=== PATIENT | female | born 1955 | race Caucasian/White ===

== ENCOUNTER 2018-07-09 08:33 | Day surgery (SDC) | payer OTHER ==
[2018-07-09] MEDS ORDERED: ePHEDrine SULFATE 50 MG/1 ML IVP ONE (08:48)
[2018-07-09] MEDS ORDERED: ceFAZolin SODIUM 1 GM VIAL ONE (08:48)
[2018-07-09] MEDS ORDERED: FENTANYL CITRATE/PF 250 MCG/5 ML INJ. ONE (08:48)
[2018-07-09] MEDS ORDERED: LACTATED RINGERS 1,000 ML IV.SOLN IV ONE ×2 (08:48)
[2018-07-09] MEDS ORDERED: ACETAMINOPHEN 1,000 MG/100 ML INJ IV ONE (08:48)
[2018-07-09] MEDS ORDERED: GLYCOPYRROLATE 0.2 MG/1 ML 1 ML ONE (08:48)
[2018-07-09] MEDS ORDERED: ONDANSETRON HCL/PF 4 MG/ 2ML VIAL ONE ×3 (08:48→14:24)
[2018-07-09] MEDS ORDERED: MIDAZOLAM HCL 2 MG/2 ML VIAL ONE (08:48)
[2018-07-09] MEDS ORDERED: SEVOFLURANE 250 ML LIQUID IH ONE (08:48)
[2018-07-09] MEDS ORDERED: HYDROmorphone HCL/PF 1 MG/ML VIAL ONE ×2 (08:48→14:24)
[2018-07-09] MEDS ORDERED: PROPOFOL 200 MG/20 ML VIAL IV ONE (08:48)
[2018-07-09] MEDS ORDERED: SUGAMMADEX SODIUM 200 MG/2 ML VIAL IV ONE (08:48)
[2018-07-09] MEDS ORDERED: DEXAMETHASONE SOD PHOS 4 MG/ML VIAL ONE (08:48)
[2018-07-09] MEDS ORDERED: ROCURONIUM BROMIDE 10 MG/ML 5ML VIAL ONE (08:48)
[2018-07-09] MEDS ORDERED: LIDOCAINE HCL 2% PF 100MG/5ML VIAL IJ ONE (08:48)
[2018-07-09] MEDS ORDERED: SCOPOLAMINE HYDROBROMIDE 1.5MG/72HR PATCH TD ONE (10:01)
[2018-07-09] MEDS ORDERED: METOPROLOL TARTRATE 5 MG/5 ML VIAL IVP ONE (14:15)
[2018-07-09] MEDS ORDERED: MORPHINE SULFATE 4 MG/ML PREFILLED SYR IVP PRN (15:41)
[2018-07-09] MEDS ORDERED: LEVALBUTEROL HCL 1.25 MG/3 ML AMPUL.NEB NEB PRN (15:41)
[2018-07-09] MEDS ORDERED: ONDANSETRON HCL/PF 4 MG/ 2ML VIAL IVP PRN (15:41)
[2018-07-09] MEDS ORDERED: HYDROCODON-ACETAMIN 7.5-325/15ML SOLN UD CUP PO PRN (15:41)
[2018-07-09] MEDS ORDERED: ALBUTEROL 90MCG/PUFF INHALER IH PRN (15:45)
--- NOTE | 2018-07-09 15:54 | History and Physical Report ---
History of Present Illnes - History of Present Illness Reason for Visit: Morbid obesity, s/p gastric sleeve History of Present Illness: This is a 63 year old female who has struggled with obesity for most of her adult life. Her current BMI is 35.4. She has tried multiple efforts at weight loss in the past, but has not had any success. She presented for evaluation for gastric sleeve, which was performed by Dr. Pérez today. - Past Medical History Cardiac: HTN Pulmonary: COPD, Sleep Apnea Psych: Anxiety, Depression Musculoskeletal: Chronic low back pain Endocrine: obesity - Past Surgical History Past Surgical History: Hysterectomy, Other (Foot surgery, lumbar laminectomy) - Past Social History Smoke: No Alcohol: None Drugs: None Lives: With Family Domestic Violence: Negative - Health Maintenance Health Maintenance: Cholesterol Influenza Vaccine: Current for this Influenza Season Pneumonia Vaccine: Yes Review of Systems - Review of Systems Constitutional: negative: Fever, Chills Eyes: negative: pain ENT: negative: Ear Pain Respiratory: negative: Cough Cardiovascular: negative: Chest Pain Gastrointestinal: Nausea, Abdominal Pain. negative: Vomiting Genitourinary: negative: Dysuria Musculoskeletal: negative: Neck Pain Skin: negative: Rash Neurological: Incoordination. negative: Weakness, Change in Speech - Medications/Allergies Current Inpatient Medications: Current Inpatient Medications Albuterol Sulfate (Ventolin Hfa) 2 puff IH PRN PRN PRN Reason: Bronchodialation Cefazolin Sodium/Dextrose (Cefazolin 1 G/50 Ml-Dextrose) 2 gm IV Q8H [facility] Stop: 07/10/18 04:01 Docusate Sodium (Colace) 100 mg PO BID [facility] Duloxetine HCl (Cymbalta) 60 mg PO HS [facility] Gabapentin (Neurontin) 300 mg PO TID [facility] Sodium Chloride (Normal Saline) 1,000 mls @ 150 mls/hr IV Q8H [facility] Levalbuterol HCl (Xopenex) 1.25 mg NEB Q4 PRN PRN Reason: SOA, Dyspnea, or Wheezing Stop: 07/13/18 15:40 Metoprolol Succinate (Toprol Xl) 50 mg PO DAILY [facility] Miscellaneous (Patient Own Med) 1 each PO DAILY [facility] Morphine Sulfate () 4 mg IVP Q2 PRN PRN Reason: Severe Pain Stop: 07/13/18 15:40 Multivitamins (Tab-A-[place]) 1 each PO DAILY [facility] Ondansetron HCl (Zofran 4 Mg/2 Ml) 4 mg IVP Q6H PRN PRN Reason: Nausea / Vomiting Stop: 07/13/18 15:40 Oxycodone HCl (Oxycontin) 20 mg PO TID [facility] Pantoprazole Sodium (Protonix) 40 mg PO 0700 [facility] Ropinirole HCl (Requip) 0.25 mg PO HS [facility] Tiotropium [place] (Spiriva) 1 inh IH DAILY [facility] Exam - Exam Vital Signs: Vital Signs (72 hours) 07/09/18 07/09/18 15:41 15:47 Temperature 97.6 F 98.9 F Pulse Rate [ 81 79 Left] Respiratory 18 18 Rate Blood Pressure 139/64 158/77 [Left Arm] O2 Sat by Pulse 95 91 L Oximetry General: Alert, Oriented to Person, Moderate distress HEENT: Atraumatic, PERRLA, EOMI Neck: No: Stridor, Rigidity Lungs: Clear to auscultation, Decreased Air Movement Cardiovascular: Regular rate, Normal S1, Normal S2 Murmur: No: Other Abdomen: Normal bowel sounds Genitourinary: No: Other Male Genitourinary: No: Other Female Genitourinary: No: Other Integumentary: Normal, [place], Warm Extremities: No clubbing, No cyanosis, No edema Neurological: Normal speech Psych/Mental Status: Mental status NL Assessment/Plan - Assessment/Plan (1) Morbid obesity Status: Acute Current Visit: Yes Assessment: S/P Gastric sleeve Plan: Ambulate, advance diet (2) Hypertension Status: Acute Current Visit: Yes Qualifiers: Hypertension type: essential hypertension Qualified Code(s): I10 - Essential (primary) hypertension Assessment: Continue metoprolol (3) Obstructive sleep apnea Status: Acute Current Visit: Yes Assessment: Continue CPAP (she brought hers with her) (4) Anxiety Status: Acute Current Visit: Yes Assessment: Stable (5) Depression Status: Acute Current Visit: Yes Qualifiers: Depression Type: major depressive disorder Active/Remission status: currently active Major depression episode severity: moderate Assessment: Continue Duloxetine (6) COPD (chronic obstructive pulmonary disease) Status: Acute Current Visit: Yes Qualifiers: COPD type: emphysema Emphysema type: panlobular Qualified Code(s): J43.1 - Panlobular emphysema Assessment: Xopenex is ordered Continue Spiriva and Albuterol inhaler VTE Assessment - RISK FACTOR SCORE VTE RISK FACTOR SCORES: AGE 40-60 YEARS, MAJOR SURGERY/ANESTHESIA TIME > 1 HOUR (SCDs and Lovenox)
[2018-07-09] MEDS: HYDROCODON-ACETAMIN 7.5-325/15ML SOLN UD CUP PO PRN (16:06)
[2018-07-09 16:31] VITALS: BMI 34.4
[2018-07-09] MEDS: 0.9 % SODIUM CHLORIDE 1,000 ML IV SCH ×3 (17:02→22:15)
[2018-07-09] MEDS: ENOXAPARIN SODIUM 40 MG/0.4 ML DISP.SYRIN SQ SCH (17:36)
[2018-07-09] MEDS: GABAPENTIN 300 MG CAPSULE PO SCH (17:39)
[2018-07-09] MEDS: CEFAZOLIN SODIUM/DEXTROSE,ISO 1 GM/50 ML PIGGYBACK IV SCH (20:50)
[2018-07-09] MEDS: DOCUSATE SODIUM 100 MG CAPSULE PO SCH (20:56)
[2018-07-09] MEDS: rOPINIRole HCL 1 MG TABLET PO SCH (20:56)
[2018-07-09] MEDS: DULoxetine HCL 30 MG CAPSULE.DR PO SCH (20:56)
[2018-07-09] MEDS: KETOROLAC TROMETHAMINE 30 MG/1ML VIAL IVP PRN (21:05)
[2018-07-10] MEDS: HYDROCODON-ACETAMIN 7.5-325/15ML SOLN UD CUP PO PRN ×3 (00:59→15:00)
[2018-07-10] MEDS: CEFAZOLIN SODIUM/DEXTROSE,ISO 1 GM/50 ML PIGGYBACK IV SCH (03:09)
[2018-07-10] MEDS: KETOROLAC TROMETHAMINE 30 MG/1ML VIAL IVP PRN ×2 (03:59→21:13)
[2018-07-10] MEDS: 0.9 % SODIUM CHLORIDE 1,000 ML IV SCH (04:45)
[2018-07-10] MEDS: PANTOPRAZOLE SODIUM 40 MG TABLET.DR PO SCH (06:00)
[2018-07-10] MEDS ORDERED: MAG HYDROX/ALUMINUM HYD/SIMETH 30 ML UDC PO ONE (07:10)
[2018-07-10 07:33] LABS: MEAN CORPUSCULAR HEMOGLOBIN 29.1 pg (28.0-34.0)
[2018-07-10 07:34] LABS: BASOPHILS % 0.3 (0.0-1.5); EOSINOPHILS % 0.8 % (0.0-6.8); MONOCYTES % 10.2 % (0.0-11.0); NEUTROPHILS # 8.9 # k/uL (1.4-7.7)
[2018-07-10 08:46] LABS: eGFR (Non-African) > 60
[2018-07-10] MEDS ORDERED: METOPROLOL SUCCINATE 50 MG TAB.ER.24H PO SCH (09:00)
[2018-07-10] MEDS ORDERED: PATIENT OWN MED 1 EACH EACH PO SCH (09:00)
[2018-07-10] MEDS ORDERED: METOPROLOL TARTRATE 50 MG TABLET ONE (09:16)
[2018-07-10] MEDS: MULTIVITAMIN 1 EACH TABLET PO SCH (09:22)
[2018-07-10] MEDS: GABAPENTIN 300 MG CAPSULE PO SCH ×3 (09:22→17:43)
[2018-07-10] MEDS: TIOTROPIUM BROMIDE INHALER IH SCH (09:26)
[2018-07-10] MEDS: DOCUSATE SODIUM 100 MG CAPSULE PO SCH ×2 (09:27→20:11)
[2018-07-10] MEDS: METOPROLOL TARTRATE 25 MG TABLET PO SCH ×2 (09:28→20:11)
--- NOTE | 2018-07-10 09:52 | Inpatient Progress Note ---
Subjective - Required Recertification Statement I anticipate X number of days because-include discharge plan: 1 - Review of Systems Events since last encounter: Patient has been up and ambulating with staff- she has been c/o her chronic back pain. She states that she is only having minimal abdominal discomfort. She states that she is using incentive spirometer. Reeducated patient on the importance of ambulation, using the SCDs while in bed, and using the incentive spirometer frequently to decrease the risk of DVT/Pneumonia. CBC showed a decrease in hemoglobin from 12.2 to 8.9 this morning- Dr. Pérez is here making rounds and we will redraw CBC. Patient blood pressure is stable at 156/88 & HR 88. IV fluids have been dc'd- patient has had minimal nausea with no vomiting. We will look at restarting her Oxycontin but decreasing dose from 20 mg to 10 mg TID (per David- pharmacist) for her chronic back pain. General: Denies: Chills, Fatigue HEENT: Denies: Head Aches, Eye Pain, Ear Pain Pulmonary: Denies: Dyspnea, Cough Cardiovascular: Denies: Chest Pain, Edema Gastrointestinal: Nausea, Abdominal Pain (s/p gastric sleeve). Denies: Vomiting Genitourinary: Denies: Dysuria Musculoskeletal: Back Pain (chronic back pain) Neurological: Denies: Incoordination, Confusion Objective - Exam Vitals and I&O: Vital Signs Temp 98.4 F 07/10/18 09:33 Pulse 85 07/10/18 09:33 Resp 18 07/10/18 09:33 BP 161/77 07/10/18 09:33 Pulse Ox 92 07/10/18 09:33 Intake & Output 07/09/18 07/09/18 07/10/18 11:59 23:59 11:59 Intake Total 1230 1020 Output Total 875 1800 Balance 355 -780 Weight 90.9 kg Intake: IV 900 900 Right Wrist 900 900 Oral 330 120 Output: Urine 875 1800 Other: Voiding Method Toilet Toilet # Voids 3 General: Alert, Oriented to Person, Oriented to Place, Oriented to Time, Cooperative, Mild distress (d/t back pain ) HEENT: Atraumatic, PERRLA, Mouth Mucous membr. moist/[place], Nose Mucous membr. moist/[place] Neck: Supple, +2 carotid pulse wo bruit Lungs: Clear to auscultation, Normal air movement, Speaks full Sentences Cardiovascular: Regular rate, Normal S1, Normal S2, No murmurs Abdomen: Normal bowel sounds, Soft. No: Distended Extremities: No edema, Normal pulses, No tenderness/swelling Skin: Normal, [place], Warm, Dry Neurological: Normal speech, Strength Equal Bilat, Sensation intact Psych/Mental Status: Mental status NL, Mood NL, Appropriate Affect - Results Results: Laboratory Results WBC 12.10 K/ul (4.00-12.00) H 07/10/18 06:20 RBC 3.05 M/ul (3.90-5.20) L 07/10/18 06:20 Hgb 8.9 g/dL (12.0-16.0) L 07/10/18 06:20 Hct 26.5 % (34.5-46.5) L 07/10/18 06:20 MCV 87.0 fl (80.0-100.0) 07/10/18 06:20 MCH 29.1 pg (28.0-34.0) 07/10/18 06:20 MCHC 33.5 g/dL (30.0-36.0) 07/10/18 06:20 RDW 13.7 % (11.3-14.3) 07/10/18 06:20 Plt Count 191 K/mm3 (130-400) 07/10/18 06:20 Neut % (Auto) 73.9 % (39.0-79.0) 07/10/18 06:20 Lymph % (Auto) 14.8 % (16.0-50.0) L 07/10/18 06:20 [place] % (Auto) 10.2 % (0.0-11.0) 07/10/18 06:20 Eos % (Auto) 0.8 % (0.0-6.8) 07/10/18 06:20 Baso % (Auto) 0.3 (0.0-1.5) 07/10/18 06:20 Neut # (Auto) 8.9 # k/uL (1.4-7.7) H 07/10/18 06:20 Lymph # (Auto) 1.8 # k/uL (0.6-4.0) 12/20/18 06:20 [place] # (Auto) 1.2 # k/uL (0.0-0.9) H 07/10/18 06:20 Eos # (Auto) 0.1 # k/uL (0.0-0.6) 07/10/18 06:20 Baso # (Auto) 0.0 # k/uL (0.0-0.5) 07/10/18 06:20 Sodium 143 mmol/L (136-145) 07/10/18 06:20 Potassium 3.6 mmol/L (3.5-5.1) 07/10/18 06:20 Chloride 106 mmol/L (98-107) 07/10/18 06:20 BUN 11 mg/dL (7-17) 07/10/18 06:20 Creatinine 0.80 mg/dL (0.52-1.04) 07/10/18 06:20 Estimated Creat Clear 124 07/10/18 06:20 Est GFR ( Amer) > 60 (60-) 07/10/18 06:20 Est GFR (Non-Af Amer) > 60 (60-) 07/10/18 06:20 Glucose 106 mg/dL (74-106) 07/10/18 06:20 Calcium 8.4 mg/dL (8.4-10.2) 07/10/18 06:20 Total Bilirubin 0.6 mg/dL (0.2-1.3) 07/10/18 06:20 AST 36 U/L (15-46) 07/10/18 06:20 ALT 40 U/L (13-69) 07/10/18 06:20 Alkaline Phosphatase 94 U/L (38-126) 07/10/18 06:20 Total Protein 5.8 g/dL (6.3-8.2) L 07/10/18 06:20 Albumin 3.5 g/dL (3.5-5.0) 07/10/18 06:20 Assessment/Plan - Assessment/Plan (1) S/P gastric surgery Status: Acute Current Visit: Yes Assessment: Patient having minimal nausea with no vomiting. Following gastric sleeve diet. Incision sites without redness/swelling/drainage. Abdominal pain is minimal Plan: Will continue with current treatment; frequent ambulation, SCDs in bed, frequent use of incentive spirometer, following strict gastric bypass diet, oral pain control. (2) Morbid obesity Status: Acute Current Visit: Yes Assessment: S/P gastric sleeve Plan: S/P Gastric Sleeve (3) Hypertension Status: Acute Current Visit: Yes Qualifiers: Hypertension type: essential hypertension Qualified Code(s): I10 - Essential (primary) hypertension Assessment: Controlled with BP meds Plan: Will continue lopressor for HTN- last BP 156/88 (4) Obstructive sleep apnea Status: Acute Current Visit: Yes Assessment: Stable with CPAP Plan: Patient using home CPAP while here (5) Anxiety Status: Acute Current Visit: Yes Assessment: Stable with home meds Plan: Continue with home med (6) Depression Status: Acute Current Visit: Yes Qualifiers: Depression Type: major depressive disorder Active/Remission status: currently active Major depression episode severity: moderate Assessment: Stable with home meds Plan: Stable with home meds (7) COPD (chronic obstructive pulmonary disease) Status: Acute Current Visit: Yes Qualifiers: COPD type: emphysema Emphysema type: panlobular Qualified Code(s): J43.1 - Panlobular emphysema Assessment: Stable on home meds Plan: Will continue Spiriva- Xopenox ordered PRN (has not been needed)
[2018-07-10 09:57] LABS: BASOPHILS % 0.4 (0.0-1.5); EOSINOPHILS % 0.8 % (0.0-6.8); MEAN CORPUSCULAR HEMOGLOBIN 28.9 pg (28.0-34.0); MONOCYTES % 9.6 % (0.0-11.0); NEUTROPHILS # 9.6 # k/uL (1.4-7.7)
[2018-07-10] MEDS: oxyCODONE HCL 10 MG TAB.ER.12H PO SCH ×3 (10:13→17:44)
[2018-07-10] MEDS ORDERED: LISINOPRIL 5 MG TABLET PO ONE (15:21)
[2018-07-10] MEDS ORDERED: LISINOPRIL 20 MG TABLET ONE (15:27)
[2018-07-10] MEDS: ENOXAPARIN SODIUM 40 MG/0.4 ML DISP.SYRIN SQ SCH (15:31)
[2018-07-10] MEDS ORDERED: HYDROcodone /APAP 5/325 1 EACH TABLET PO PRN (17:33)
[2018-07-10] MEDS: DULoxetine HCL 30 MG CAPSULE.DR PO SCH (20:11)
[2018-07-10] MEDS: rOPINIRole HCL 1 MG TABLET PO SCH (20:11)
[2018-07-11] MEDS: PANTOPRAZOLE SODIUM 40 MG TABLET.DR PO SCH (06:04)
[2018-07-11 07:10] LABS: BASOPHILS % 0.4 (0.0-1.5); EOSINOPHILS % 0.8 % (0.0-6.8); MEAN CORPUSCULAR HEMOGLOBIN 29.4 pg (28.0-34.0); MONOCYTES % 9.1 % (0.0-11.0); NEUTROPHILS # 6.8 # k/uL (1.4-7.7); eGFR (Non-African) > 60
[2018-07-11] MEDS ORDERED: HYDROcodone /APAP 5/325 1 EACH TABLET ONE (07:40)
--- NOTE | 2018-07-11 08:11 | Discharge Summary ---
Discharge Summary - Discharge Sumary History of Present Illness: This is a 63 year old female who has struggled with obesity for most of her adult life. Her current BMI is 35.4. She has tried multiple efforts at weight loss in the past, but has not had any success. She presented for evaluation for gastric sleeve, which was performed by Dr. Pérez today. Condition at Discharge: Stable Home Medications: Ambulatory Orders Medication Instructions Recorded Albuterol Sulfate [Proair HFA] 1 inh IH PRN 07/09/18 Bupropion HCl [Wellbutrin Xl] 300 mg PO BID 07/09/18 Docusate Sodium [Colace] 100 mg PO BID 07/09/18 Duloxetine HCl [Cymbalta] 60 mg PO BID 07/09/18 Etodolac [Lodine] 500 mg PO BID 07/09/18 Gabapentin 300 mg PO TID 07/09/18 Metoprolol Tartrate 50 mg PO DAILY 07/09/18 Multivitamin [Multiple Vitamins] 1 each PO DAILY 07/09/18 Ranitidine HCl 150 mg PO BID 07/09/18 Ropinirole HCl 0.25 mg PO HS 07/09/18 Tiotropium [place] [Spiriva] 1 inh IH PRN 07/09/18 Trazodone HCl 50 mg PO HS 07/09/18 oxyCODONE HCL [OxyCONTIN] 20 mg PO TID 07/09/18 Lisinopril/Hydrochlorothiazide 1 each PO DAILY 07/10/18 [Zestoretic 10-12.5 mg Tablet] Hydrocodone/Acetaminophen [Hycet 15 ml PO Q4H PRN #300 ml 07/11/18 7.5 mg-325 mg/15 ml Soln] Omeprazole 20 mg PO DAILY #30 capsule. 07/11/18 Ondansetron HCl Rapdis [Zofran Odt] 4 mg PO Q6 PRN #20 tab 07/11/18 Consultations this Visit: None Procedures this Visit: Other (S/P Gastric Sleeve) Allergies/Adverse Reactions: Allergies Allergy/AdvReac Type Severity Reaction Status Date / Time morphine AdvReac Intermediate Abdominal Verified 07/09/18 20:55 Pain Patient Problems: Current Active Problems Problem Status Onset Anxiety Acute COPD (chronic obstructive pulmonary disease) Acute Depression Acute Hypertension Acute Morbid obesity Acute Obstructive sleep apnea Acute S/P gastric surgery Acute Discharge Summary: Patient has done very well during hospitalization. Her pain has improved since we put her back on her oxycontin for her back pain. She has been up ambulating without leg pain/tenderness, incision sites are without redness/erythema, lungs are clear- patient has been using incentive spirometer. She will continue with her blood pressure medication and document blood pressures daily and take them to her follow up appointment. Patient had a drop in her hemoglobin but has been asymptomatic- discussed with patient starting an Iron pill- she feels that her pain is controlled and nausea has been very minimal. She has a follow up appointment on 07/17/18. Hospital Course: Patient has received IVF until she was able to tolerate gastric sleeve diet. Patient transitioned from IV pain meds to PO meds and did very well. Monitored CBC - Final Diagnosis (1) S/P gastric surgery Problems: Patient will monitor incision sites, frequent ambulation to decrease risk of DVTs, continue to use incentive spirometer to decrease risk of infection. Right or Left: Right (2) Morbid obesity Problems: S/P gastric sleeve Right or Left: Right (3) Hypertension Problems: Stable on home meds Right or Left: Right (4) Obstructive sleep apnea Problems: Uses CPAP- stable Right or Left: Right (5) Anxiety Problems: stable on home meds Right or Left: Right (6) Depression Right or Left: Right (Stable on home meds) (7) COPD (chronic obstructive pulmonary disease) Problems: No resp. issues during hospitalization- stable on home meds Right or Left: Right
[2018-07-11] MEDS: DOCUSATE SODIUM 100 MG CAPSULE PO SCH (08:56)
[2018-07-11] MEDS: METOPROLOL TARTRATE 25 MG TABLET PO SCH (08:56)
[2018-07-11] MEDS: oxyCODONE HCL 10 MG TAB.ER.12H PO SCH (08:57)
[2018-07-11] MEDS: GABAPENTIN 300 MG CAPSULE PO SCH (08:57)
[2018-07-11] MEDS: MULTIVITAMIN 1 EACH TABLET PO SCH (08:58)
[2018-07-11] MEDS: TIOTROPIUM BROMIDE INHALER IH SCH (08:59)
[2018-07-11] MEDS ORDERED: LISINOPRIL 5 MG TABLET PO SCH (09:00)
== END 2018-07-09 15:38 | disposition other institution (70) ==
LOC: OPSURG 08:33 → UNDOADMIN 15:39 → SOUTH 15:39 → UNDODISIN 07-11 10:14
PROVIDERS: ATTEND Surgery
DX: E66.01 Morbid (severe) obesity due to excess calories (principal); Z68.35 Body mass index [BMI] 35.0-35.9, adult; G47.33 Obstructive sleep apnea (adult) (pediatric); I10 Essential (primary) hypertension; M54.5 Low back pain; F41.9 Anxiety disorder, unspecified; F31.9 Bipolar disorder, unspecified
CPT/HCPCS: 43775; 88305; A9270; J0690; J1100; J1170; J1650; J1885; J2001; J2250; J2405; J2704; J3490; J7030; J7120; 80048; 80053; 85025; 99231; 99232; 99238

== ENCOUNTER 2018-07-09 15:39 | Inpatient (IN) | payer OTHER ==
[2018-07-11 09:04] VITALS: BP 132/81
== END 2018-07-11 10:14 | disposition home or self-care (01) | DRG 641 ==
LOC: SOUTH 15:39
PROVIDERS: ADMIT Family Medicine; ATTEND Family Medicine
DX: E66.01 Morbid (severe) obesity due to excess calories (principal); Z68.35 Body mass index [BMI] 35.0-35.9, adult; G47.33 Obstructive sleep apnea (adult) (pediatric); I10 Essential (primary) hypertension; F41.9 Anxiety disorder, unspecified; F32.9 Major depressive disorder, single episode, unspecified; R11.2 Nausea with vomiting, unspecified; G89.18 Other acute postprocedural pain
CPT/HCPCS: 99231; 99232; 99238